=== PATIENT | female | born 1975 | race Caucasian/White ===

== ENCOUNTER → 2016-11-28 | Outpatient (CLI) | payer BC ==
--- NOTE | 2016-11-28 08:30 | CT ---
EXAMINATION TYPE: CT abdomen w con DATE OF EXAM: 11/28/2016 COMPARISON: 10/18/2011 HISTORY: 41 year-old female elevated LFTs. History of colon cancer. TECHNIQUE: Contiguous axial scanning of the abdomen following administration of 100 ml Omnipaque 300 IV contrast. Delayed images through the kidneys and coronal/sagittal reconstructions performed. CT DLP: 726.7 mGycm Automated exposure control for dose reduction was used. FINDINGS: The heart is normal size without pericardial effusion. Lung bases clear without pleural effusion. Liver enlarged measuring 20.5 cm craniocaudal. No focal liver lesion. Portal venous system is patent. Normal distal tapering of the bile duct. Cholecystectomy clips are p resent. There is an omental fat-containing midline supraumbilical hernia measuring 2.7 cm wide and the abdomi nal wall defect measuring 6 mm wide, axial image 36. This appears larger as compared to prior exam. T here is additional omental fat-containing umbilical hernia and incisional changes along the anterior abdominal wall. Adrenal glands, kidneys, and pancreas appear within normal limits. Spleen measures at the upper limit s of normal at 13.4 cm. No dilated small bowel, free fluid, or free air. Scattered nonenlarged and mildly prominent mesenteric lymph nodes measuring up to 6 mm are unchanged. Postsurgical changes along the ascending colon with a bowel anastomotic staple line. There is moderat e stool burden without pericolonic inflammatory change. Bones: No osseous destructive process. IMPRESSION: 1. HEPATOMEGALY (20.5 CM CRANIOCAUDAL). FINDINGS ARE NONSPECIFIC BUT MAY BE SECONDARY TO HEPATIC STEA TOSIS. CLINICALLY CORRELATE. NO FOCAL LIVER LESION IS SEEN. 2. SUPRAUMBILICAL INCISIONAL HERNIA CONTAINING OMENTAL FAT MEASURING 2.7 CM. SIMILAR SMALL OMENTAL FA T-CONTAINING UMBILICAL HERNIA. 3. STAPLE LINE FROM PRIOR BOWEL ANASTOMOSIS ALONG THE ASCENDING COLON.
== END | disposition home or self-care (01) ==
LOC: RADCTMAIN 07:00
PROVIDERS: ATTEND Internal Medicine Hematology & Oncology
DX: R16.0 Hepatomegaly, not elsewhere classified (principal); K43.2 Incisional hernia without obstruction or gangrene
CPT/HCPCS: 74160; Q9967

== ENCOUNTER → 2017-05-20 | Outpatient (CLI) | payer BC ==
--- NOTE | 2017-05-21 12:02 | MM ---
Reason for exam: screening (asymptomatic). Last mammogram was performed 1 year and 1 month ago. History: Patient is postmenopausal and has history of colon cancer at age 35. Family history of breast cancer in paternal aunt. Physical Findings: A clinical breast exam by your physician is recommended on an annual basis and results should be correlated with mammographic findings. MG Screening Mammo w CAD Bilateral CC and MLO view(s) were taken. Prior study comparison: April 11, 2016, left breast MG work up mamm w CAD LT. April 02, 2016, bilateral MG screening mammo w CAD. October 13, 2014, mammogram, performed at [facility]. August 19, 2011, bilateral digital screening mammo w/CAD. There are scattered fibroglandular densities. There is chronic nodularity in the left breast. There is no discrete abnormality. ASSESSMENT: Negative, BI-RAD 1 RECOMMENDATION: Routine screening mammogram of both breasts in 1 year.
== END | disposition home or self-care (01) ==
LOC: RADMAMWWP 13:15
PROVIDERS: ATTEND Internal Medicine Hematology & Oncology
DX: Z12.31 Encounter for screening mammogram for malignant neoplasm of breast (principal)

== ENCOUNTER → 2018-12-11 | Outpatient (CLI) | payer BC ==
--- NOTE | 2018-12-15 10:11 | MM ---
Reason for exam: screening (asymptomatic). Last mammogram was performed 1 year and 7 months ago. History: Patient is postmenopausal and has history of colon cancer at age 35. Family history of breast cancer in paternal aunt. Physical Findings: A clinical breast exam by your physician is recommended on an annual basis and results should be correlated with mammographic findings. MG Screening Mammo w CAD Bilateral CC and MLO view(s) were taken. Prior study comparison: May 20, 2017, bilateral MG screening mammo w CAD. April 11, 2016, left breast MG work up mamm w CAD LT. The breast tissue is heterogeneously dense. This may lower the sensitivity of mammography. No suspicious abnormality. No significant changes when compared with prior studies. ASSESSMENT: Negative, BI-RAD 1 RECOMMENDATION: Routine screening mammogram of both breasts in 1 year.
== END | disposition home or self-care (01) ==
LOC: RADMAMWWP 10:00
PROVIDERS: ATTEND Obstetrics & Gynecology
DX: Z12.31 Encounter for screening mammogram for malignant neoplasm of breast (principal)
CPT/HCPCS: 77067

== ENCOUNTER 2019-01-22 10:11 | Day surgery (SDC) | payer BC ==
[2019-01-20 09:17] VITALS: BMI 26.6
[~2019-01-22 10:11] MED LIST: LACTATED RINGERS 1,000 ML IV SCH
[2019-01-22 10:46] VITALS: RESP 16; TEMP 97.1
[2019-01-22] MEDS ORDERED: LIDOCAINE 1% 20 ML VIAL (10MG/ML) FOR IV START INTRADERMA ONE (10:46)
[2019-01-22] MEDS ORDERED: MIDAZOLAM PF (FBP) 2 MG/2 ML VIAL IV ONE (10:50)
[2019-01-22] MEDS ORDERED: PROPOFOL 10 MG/ML 20 ML VIAL IV ONE (11:29)
[2019-01-22] MEDS ORDERED: LIDOCAINE 1% INJ 10MG/ML (20 ML MDV) ONE (11:29)
[2019-01-22] MEDS ORDERED: KETOROLAC 30 MG/ML 1 ML VIAL ONE (11:29)
--- NOTE | 2019-01-22 11:54 | P.PCN ---
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 Status post right colon resection 8 years ago.. Procedure performed: Esophagogastroduodenoscopy Colonoscopy Preoperative diagnosis: History of colon cancer diagnosed 8 years ago status post right hemicolectomy Beltran syndrome Anesthesia: MAC Procedure: After informed consent was obtained from the patient was brought into the endoscopy unit and IV sedation was administered by anesthesia under continuous monitoring. Initially upper endoscopy was done. The Olympus GF 160 video endoscope was inserted inserted into the mouth and esophagus intubated without any difficulty and was gradually advanced into the stomach and duodenum and carefully examined. The bulb and second part of the duodenum appeared normal. The scope was then withdrawn into the stomach adequately insufflated with air and upon careful examination the antrum and body, cardia and fundus appeared normal. The scope was then withdrawn into the esophagus. The GE junction was located at 40 cm to the incisors. It appeared regular with no erythema erosions or ulcerations. Rest of the esophagus appeared normal. Patient tolerated the procedure well. At this time the patient continued to remain sedation. Initial digital rectal examination was normal. Olympus CF 160 video colonoscope was then inserted into the rectum and gradually advanced to the right colon where the area of colorectal anastomosis was visualized and appeared normal. Mucosa of the, ascending colon, transverse colon, descending colon, sigmoid colon and rectum appeared normal. Retroflexion was performed in the rectum and no lesions were noted. Patient tolerated the procedure well. Impression: 1. Upper endoscopy was essentially within normal limits 2. Colonoscopy revealed normal ileocolic anastomosis in the right colon and no evidence of colorectal neoplasia Recommendations: Findings of this examination were discussed with the patient as well as her family. She was advised to have a repeat colonoscopy in one year and repeat EGD every 3-5 years
[2019-01-22 12:20] VITALS: BP 106/61; PULSE 70
== END 2019-01-22 12:44 | disposition home or self-care (01) ==
LOC: ORWHC2ENDO 10:11
PROVIDERS: ATTEND Internal Medicine Gastroenterology
DX: Z12.11 Encounter for screening for malignant neoplasm of colon (principal); Z15.09 Genetic susceptibility to other malignant neoplasm; F39 Unspecified mood [affective] disorder; Z90.49 Acquired absence of other specified parts of digestive tract; Z85.038 Personal history of other malignant neoplasm of large intestine; Z98.0 Intestinal bypass and anastomosis status; Z79.899 Other long term (current) drug therapy
CPT/HCPCS: 43235; J2001; J1885; J2704; J2250; G0105

== ENCOUNTER → 2020-05-25 | Outpatient (CLI) | payer BC ==
--- NOTE | 2020-05-26 08:48 | MM ---
Reason for exam: screening (asymptomatic). Last mammogram was performed 1 year and 5 months ago. History: Patient is postmenopausal and has history of colon cancer at age 35. Family history of breast cancer in paternal aunt. Physical Findings: A clinical breast exam by your physician is recommended on an annual basis and results should be correlated with mammographic findings. MG Screening Mammo w CAD Bilateral CC and MLO view(s) were taken. Prior study comparison: December 11, 2018, bilateral MG screening mammo w CAD. May 20, 2017, bilateral MG screening mammo w CAD. There are scattered fibroglandular densities. There is no discrete abnormality. ASSESSMENT: Negative, BI-RAD 1 RECOMMENDATION: Routine screening mammogram of both breasts in 1 year.
== END | disposition home or self-care (01) ==
LOC: RADMAMWWP 09:46
PROVIDERS: ATTEND Family Medicine
DX: Z12.31 Encounter for screening mammogram for malignant neoplasm of breast (principal)
CPT/HCPCS: 77067

== ENCOUNTER 2020-06-05 06:49 | Day surgery (SDC) | payer BC ==
[2020-06-05 10:36] VITALS: TEMP 97.4
[2020-06-05] MEDS ORDERED: LACTATED RINGERS 1,000 ML IV ONE (10:46)
[2020-06-05] MEDS ORDERED: fentaNYL (PF) 50 MCG/ML 2 ML AMP IVP ONE (11:09)
[2020-06-05] MEDS ORDERED: PROPOFOL 10 MG/ML 20 ML VIAL IV ONE (11:28)
[2020-06-05] MEDS ORDERED: LIDOCAINE 1% INJ 10MG/ML (20 ML MDV) ONE (11:28)
--- NOTE | 2020-06-05 11:48 | P.PCN ---
Date of Procedure: 06/05/20 Procedure(s) Performed: BRIEF HISTORY: Patient is a 45-year-old pleasant white female scheduled for an elective colonoscopy as a part of surveillance of prior history of colon cancer diagnosed at age 35 for which she underwent right hemicolectomy. 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 Last EGD and colonoscopy was done in January 2019. PROCEDURE PERFORMED: Colonoscopy. 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 IV sedation per Anesthesia. PROCEDURE: After informed consent was obtained, the patient, was brought into the endoscopy unit. IV sedation was administered by Anesthesia under continuous monitoring. Digital rectal examination was normal. Initially the Olympus CF-160 flexible video colonoscope was then inserted in the rectum, gradually advanced into the right colon without any difficulty. Careful examination was performed as the scope was gradually being withdrawn .The anastomosis appeared normal. Prep was fair. Irrigation was performed Mucosa of the ascending colon, transverse colon, descending colon, sigmoid colon, and rectum appeared normal. Retroflexion was performed in the rectum and no lesions were seen. The patient tolerated the procedure well. IMPRESSION: Normal-appearing colon from rectum to right colon revealed normal- appearing ileocolic anastomosis with no evidence of colorectal neoplasia RECOMMENDATIONS: Findings of this examination were discussed with the patient as well as her family. She was advised to have a repeat EGD and colonoscopy in 1 year..
[2020-06-05 12:01] VITALS: RESP 16
[2020-06-05 12:15] VITALS: BP 120/78; PULSE 55
[2020-06-05] MEDS ORDERED: LACTATED RINGERS 1,000 ML IV SCH (12:24)
[2020-06-05] MEDS ORDERED: LIDOCAINE 1% (10MG/ML) FOR IV START INTRADERMA PRN (12:24)
== END 2020-06-05 12:24 | disposition home or self-care (01) ==
LOC: ORWHC2ENDO 06:49
PROVIDERS: ATTEND Internal Medicine Gastroenterology
DX: Z12.11 Encounter for screening for malignant neoplasm of colon (principal); F32.9 Major depressive disorder, single episode, unspecified; Z85.038 Personal history of other malignant neoplasm of large intestine; Z15.09 Genetic susceptibility to other malignant neoplasm; Z90.49 Acquired absence of other specified parts of digestive tract; Z79.899 Other long term (current) drug therapy; Z87.81 Personal history of (healed) traumatic fracture; Z98.890 Other specified postprocedural states; Z90.710 Acquired absence of both cervix and uterus; Z98.0 Intestinal bypass and anastomosis status
CPT/HCPCS: G0105; J2001; J3010; J2704; 45378

== ENCOUNTER → 2021-08-28 | Outpatient (CLI) | payer BC, OTHER ==
--- NOTE | 2021-08-30 11:14 | MM ---
Reason for exam: screening (asymptomatic). Last mammogram was performed 1 year and 3 months ago. History: Patient is postmenopausal and has history of colon cancer at age 35. Family history of breast cancer in paternal aunt. Physical Findings: A clinical breast exam by your physician is recommended on an annual basis and results should be correlated with mammographic findings. MG 3D Screening Mammo W/Cad Bilateral CC and MLO view(s) were taken. XCCL view(s) were taken of the left breast. Prior study comparison: May 25, 2020, bilateral MG screening mammo w CAD. December 11, 2018, bilateral MG screening mammo w CAD. There are scattered fibroglandular densities. There is chronic nodularity in the left breast. No significant changes when compared with prior studies. ASSESSMENT: Benign, BI-RAD 2 RECOMMENDATION: Routine screening mammogram of both breasts in 1 year.
== END | disposition home or self-care (01) ==
LOC: RADMAMWWP 07:31
PROVIDERS: ATTEND Internal Medicine
DX: Z12.31 Encounter for screening mammogram for malignant neoplasm of breast (principal); Z78.0 Asymptomatic menopausal state; Z80.3 Family history of malignant neoplasm of breast
CPT/HCPCS: 77063; 77067

== ENCOUNTER → 2022-09-26 | Outpatient (CLI) | payer BC, OTHER ==
--- NOTE | 2022-09-27 07:53 | MM ---
Reason for Exam: Screening (asymptomatic). Last mammogram was performed 1 year(s) and 1 month(s) ago. Patient History: Menarche at age 20. First Full-Term at age 26. Left ovary removed at age 36. Right ovary removed at age 36. Hysterectomy at age 36. Postmenopausal. Colorectal cancer, age 35. Paternal aunt had breast cancer. Risk Values: Sandy 5 year model risk: 0.9%. NCI Lifetime model risk: 9.3%. Prior Study Comparison: 12/11/2018 Bilateral Screening Mammogram, [facility]. 05/25/2020 Bilateral Screening Mammogram, [facility]. 08/28/2021 Bilateral Screening Mammogram, [facility]. Tissue Density: There are scattered fibroglandular densities. Findings: Analyzed By CAD. There is no suspicious group of microcalcifications or new suspicious mass in either breast. Stable chronic nodularity within the left breast. Overall Assessment: Benign, BI-RAD 2 Management: Screening Mammogram of both breasts in 1 year. A clinical breast exam by your physician is recommended on an annual basis and results should be correlated with mammographic findings. Electronically signed and approved by: Abdi Bentley D.O.
== END | disposition home or self-care (01) ==
LOC: RADMAMWWP 07:33
PROVIDERS: ATTEND Obstetrics & Gynecology
DX: Z12.31 Encounter for screening mammogram for malignant neoplasm of breast (principal); Z78.0 Asymptomatic menopausal state; Z80.3 Family history of malignant neoplasm of breast
CPT/HCPCS: 77063; 77067

== ENCOUNTER → 2024-01-14 | Outpatient (CLI) | payer BC, OTHER ==
[2024-01-14 13:54] VITALS: BP 118/75; PULSE 65; RESP 18; TEMP 97.8
--- NOTE | 2024-01-14 14:21 | P.SLEEP ---
History of Present Illness DATE: 01/14/2024 CONSULTATION/NEW PATIENT EVALUATION HISTORY OF PRESENT ILLNESS/SLEEP-WAKE EVALUATION: 48-year-old lady had been e valuated in the sleep center for possible obstructive sleep apnea hypopnea syndrome. SLEEP SCHEDULE: Usually sleep schedule from 10 PM to 6 AM on weekdays and from 1012 midnight until 79 AM on weekend. FALLING ASLEEP: Patient does have difficulties with falling asleep, has TV set in bedroom. DURING SLEEP: Patient usually sleeps on the side position with loud snoring and witnessed by her episodes of stop breathing during the sleep. Patient wakes up from sleep several times with cough, dry mouth and grinding teeth. No history of hypnogogical hallucinations, sleep paralysis, or cataplexy. DURING THE DAY/WAKE STATE: In the morning patient wake up tired, has problems with concentration and anxiety. Standard sleepiness scale is in very high range of 18. Usually patient although does not take naps. PAST MEDICAL HISTORY: Acid reflux, anxiety, Beltran syndrome. PAST SURGICAL HISTORY: Colon resection for cancer in 2010, total hysterectomy in 2011, cholecystectomy in 2011, left foot surgery. MEDICATIONS: Please see below. SOCIAL HISTORY: Please see below. FAMILY HISTORY: Hypertension, sleep apnea. REVIEW OF SYSTEMS: Loud snoring, multiple awakenings from sleep, sleepiness during the day. No fevers. No double vision. No recent chest pain. No shortness of breath. No abdominal pain. No bleeding episodes. No blood in urine. No seizure episodes. PHYSICAL EXAMINATION: GENERAL: A pleasant patient without any distress. VITAL SIGNS: Please see below, weight 194.2 pounds, BMI 29.0. HEENT: PERRLA, EOMI. Evaluation of oropharynx showed tongue protrudes midline, low position of soft palate Mallampati 4. NECK: Supple. No JVD. Thyroid is not palpable. 14-7/8 inches in circumference. LUNGS: Clear to percussion and to auscultation. Good air exchange. No wheezing o r rhonchi. HEART: S1, S2 regular. No murmurs, gallops or rubs. ABDOMEN: Soft and nontender. Bowel sounds are present. No organomegaly appreciated. EXTREMITIES: No clubbing or cyanosis. SENIOR PYTHON DEVELOPER: Awake, alert, and oriented x3. Cranial nerves 2 to 7 intact. There is no fasciculation or atrophy noted. No focal deficits observed. ASSESSMENT: 1. Loud snoring, witnessed episodes of stop breathing during sleep, multiple awakenings from sleep, extremely low position of soft palate Mallampati 4, significant excessive daytime sleepiness by for sleepiness scale. Obstructive sleep apnea hypopnea syndrome. 2. Extremely high level sleepiness by Standard Sleepiness Scale of 18 dictate necessity to include narcolepsy and idiopathic hypersomnia differential diagnosis. 3. 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 4. Acid reflux. 5 Beltran syndrome, status post surgical treatment for colon cancer. 6 . Status post total hysterectomy. 7. Status post left foot surgery. PLAN: 1. Polysomnography for evaluation of patient's breathing during sleep. 2. Following plan after reading sleep study. 3. Preferable position during sleep on the side. 4. No driving if patient feels any sleepiness. Patient is aware of civil and criminal liability for unsafe driving. 5. Sleep hygiene with regular sleep time for at least 7.5-8 hours. 6. Watching weight. Thank you very much for referring this patient for consultation. Sincerely, Morgan Contreras MD, PhD, FAASM. Diplomat of [place] [employer], Sleep Medicine Board by [place] [employer] [place] [employer] [facility] [facility] Roann cc: Declan Macdonald DO Past Medical History Past Medical History: Blood Disorder, Cancer, GERD/Reflux Additional Past Medical History / Comment(s): HX BELTRAN SYNDROME. HX COLON AND APPENDIX CANCER, HERNIATED DISC IN BACK, ANXIETY, INSOMNIA History of Any Multi-Drug Resistant Organisms: None Reported Past Surgical History: Appendectomy, Bowel Resection, Cholecystectomy, Hyst erectomy, Orthopedic Surgery Additional Past Surgical History / Comment(s): COLONOSCOPY, LEFT FOOT Past Anesthesia/Blood Transfusion Reactions: Motion Sickness Past Psychological History: Anxiety Smoking Status: Never smoker Past Alcohol Use History: Occasional Past Drug Use History: None Reported - Past Family History Mother Family Medical History: GERD/Reflux, Thyroid Disorder Additional Family Medical History / Comment(s): SNORING Father Family Medical History: Diabetes Mellitus, GERD/Reflux, Hyperlipidemia, Hypertension Additional Family Medical History / Comment(s): ARTHRITIS, SLEEP APNEA, SNORING, Medications and Allergies Home Medications Medication Instructions Recorded Confirmed Type LORazepam [Ativan] 1 mg PO DAILY PRN 01/20/19 01/14/24 History Zolpidem [Ambien] 5 - 10 mg PO HS PRN 01/20/19 06/05/20 History Escitalopram [Lexapro] 10 mg PO DAILY 06/05/20 06/05/20 History Celecoxib [CeleBREX] 200 mg PO BID 01/14/24 01/14/24 History Pantoprazole [Protonix] 40 mg PO DAILY 01/14/24 01/14/24 History Zolpidem [Ambien] 5 mg PO HS PRN 01/14/24 01/14/24 History buPROPion [Wellbutrin] 150 mg PO DAILY 01/14/24 01/14/24 History Allergies Allergy/AdvReac Type Severity Reaction Status Date / Time No Known Allergies Allergy Verified 06/05/20 10:31 Physical Exam Vitals: Vital Signs Temp Pulse Resp BP Pulse Ox 01/14/24 13:54 97.8 F 65 18 118/75 98 Intake and Output 01/13/24 01/14/24 01/14/24 22:59 06:59 14:59 Other: Weight 88.054 kg Sleep Note - Sleep Data ESS Total: 18 - Sleep Note Sleep Note: Temperature: 97.8 F Pulse Rate: 65 Respiratory Rate: 18 Blood Pressure: 118/75 SpO2: 98 Height: 5 ft 8.5 in Weight: 88.054 kg BMI: Neck Circumference: 14.7
== END ==
LOC: 3 N SLEEP 13:19
PROVIDERS: ATTEND Internal Medicine
DX: G47.33 Obstructive sleep apnea (adult) (pediatric) (principal); F51.04 Psychophysiologic insomnia; F41.9 Anxiety disorder, unspecified; K21.9 Gastro-esophageal reflux disease without esophagitis; Q99.8 Other specified chromosome abnormalities; Z90.710 Acquired absence of both cervix and uterus; Z98.890 Other specified postprocedural states; Z85.038 Personal history of other malignant neoplasm of large intestine
CPT/HCPCS: 99211

== ENCOUNTER → 2024-04-01 | Outpatient (CLI) | payer BC, OTHER ==
--- NOTE | 2024-04-05 08:21 | MM ---
Reason for Exam: Screening (asymptomatic). Last mammogram was performed 1 year(s) and 6 month(s) ago. Patient History: Menarche at age 20. First Full-Term at age 26. Left ovary removed at age 36. Right ovary removed at age 36. Hysterectomy at age 36. Postmenopausal. Colorectal cancer, age 35. Paternal aunt had breast cancer. Risk Values: Sandy 5 year model risk: 0.9%. NCI Lifetime model risk: 9.2%. Prior Study Comparison: 05/25/2020 Bilateral Screening Mammogram, [facility]. 08/28/2021 Bilateral Screening Mammogram, [facility]. 09/26/2022 Bilateral MG 3D screening mammo w/cad, [facility]. Tissue Density: The breasts are heterogeneously dense, which may obscure small masses. Findings: Analyzed By CAD. There is no suspicious group of microcalcifications or new suspicious mass in either breast. Chronic nodularity stable. Overall Assessment: Benign, BI-RAD 2 Management: Screening Mammogram of both breasts in 1 year. . Patient should continue monthly self-breast exams. A clinical breast exam by your physician is recommended on an annual basis. This exam should not preclude additional follow-up of suspicious palpable abnormalities. Note on Sandy scores and lifetime risk: 1. A Sandy score greater than 3% is considered moderate risk. If this is the case, consider specialist referral to assess eligibility for a risk reducing agent. 2. If overall lifetime risk for the development of breast cancer is 20% or higher, the patient may qualify for future screening with alternating mammogram and breast MRI. [facility], , 04/05/2024 8:17 AM. Electronically signed and approved by: Ramos Burgos M.D. [facility]
== END | disposition home or self-care (01) ==
LOC: RADMAMWWP 12:51
PROVIDERS: ATTEND Internal Medicine Hematology & Oncology
CPT/HCPCS: 77063; 77067